=== PATIENT | male | born 1955 | race Caucasian/White ===

== ENCOUNTER 2024-12-27 18:52 | Emergency (ER) | payer MEDICARE, SELFPAY ==
[2024-12-27] VITALS (7 sets, daily range): BP systolic 116–150; BP diastolic 72–92; BMI 28.6
--- NOTE | 2024-12-27 19:23 | ED.MUSCINJ ---
HPI-Injury
<Srinivas Malave PA-C - Last Filed: 12/27/24 21:06>
General
Chief Complaint: Musculo-Skeletal Complaint
Source: patient
Exam Limitations: none
Time Seen by Provider: 12/27/24 18:56
History of Present Illness-Injury
Initial Injury comments:
69-year-old male [facility] with pain and deformity to left leg. He had his left hip replaced today. He could not bear weight and recovery. X-ray was unavailable in the surgical center so they sent him here for evaluation. He
is not anticoagulated. He notes pain to the left hip.
Phy Exam
<Srinivas Malave PA-C - Last Filed: 12/27/24 21:06>
Physical Exam
Physical Exam:
General: Well-appearing male no acute respiratory distress
HEENT: Normocephalic atraumatic
Heart: Regular rate and rhythm
Musculoskeletal: Left lower extremity shortened and externally rotated. Attempted internally rotating hip reproduces pain
Vascular: Palpable pulse DP left foot
Injury Course
<Srinivas Malave PA-C - Last Filed: 12/27/24 21:06>
Orders/Labs/Results
Orders:
Orders
12/27/24 18:56
CR Hip - LT without Pel 1 Vw Urgent
Comment:
Reason For Exam: pain
12/27/24 19:24
Propofol [Diprivan] 20 ml .ROUTE .STK-MED
12/27/24 19:46
CR Hip - LT without Pel 1 Vw Urgent
Comment:
Reason For Exam: post reduction
<Luis F Helms MD - Last Filed: 12/27/24 20:56>
Orders/Labs/Results
Orders:
Orders
12/27/24 18:56
CR Hip - LT without Pel 1 Vw Urgent
Comment:
Reason For Exam: pain
12/27/24 19:24
Propofol [Diprivan] 20 ml .ROUTE .STK-MED
12/27/24 19:46
CR Hip - LT without Pel 1 Vw Urgent
Comment:
Reason For Exam: post reduction
Procedures
<Srinivas Malave PA-C - Last Filed: 12/27/24 21:06>
Moderate Sedation
ASA Risk Score: Class II
Chart and allergies reviewed: Yes
Consent for anesthesia obtained: Yes
Time out completed (validating right patient & procedure): Yes
Moderate Sedation Start Time(when first medication is given): 19:35
History of difficult intubation: No
Airway free of obstruction: Yes
Patient has a gag reflex: Yes
Patient is able to open mouth: Yes
Patient has no dentures: Yes
Patient has no loose teeth: Yes
Medication administered by Provider during Moderate Sedation: IV Propofol (mg)
Total dose administered: 80
Time drug administered: 19:35
Moderate Sedation Procedure End Time: 19:46
<Srinivas Malave PA-C - Last Filed: 12/27/24 21:06>
MDM/Problems Addressed
Differential Diagnosis Includes:
Left lower lower extremity deformity. X-rays done in the room show a superior dislocation
Written consent obtained for moderate sedation and closed reduction of left hip risks and benefits discussed. Emergency room attending involved as well
<Srinivas Malave PA-C - Last Filed: 12/27/24 21:06>
*Critical Care Note
Total Time (30-74mins, 75-104mins- exclusive of procedures): Not Applicable
<LALO Tovar Last Filed: 12/27/24 21:06>
Update Note
Update Note:
Initial family demonstrated superior dislocation. written consent signed for moderate sedation and closed reduction. Sedation performed by emergency room attending. The left hip reduction was performed with hip flexion internal rotation and
longitudinal traction. A clunk was felt. The leg was let down and seem to have the same length and rotation as the opposite side. Postreduction films demonstrated successful reduction.
ED Attending Note
<Srinivas Malave PA-C - Last Filed: 12/27/24 21:06>
-
Portions of this chart may have been created with voice recognition software.� Occasional wrong word or��sound alike� substitutions may have occurred due to the inherent limitations of voice recognition software.
<Luis F Helms MD - Last Filed: 12/27/24 20:56>
ED Attending Note
Patient seen and examined by attending physician: Yes
I performed the substantive portion of visit, reviewed & personally made and approve the management plan that is documented in note by myself or ZAC.: Yes
ED Attending Note:
69-year-old male had a hip surgery done prosthesis at about 11 AM. Was noted this afternoon he had difficulty ambulating. They realized there may be a or dislocation although could not get the x-ray. He was brought over from the outpatient
surgery center for reduction. Patient medically stable. History of hypertension.
On exam patient's left hip is shortened and internally rotated. Good distal pulses and color. Incision is bandaged and healing well. Some swelling to the proximal leg.
X-ray shows a dislocated prosthesis. We discussed with the providing orthopedics. Risk-benefit to reduction was explained to the patient and family.
Hip was reduced by the physician field technical assistant Matthew without difficulty. 80 mg of propofol was given. Postreduction x-ray in place. Patient is ambulated. Will be discharged to follow-up
Discharge Plan
Departure
Patient Disposition: Home (Routine Discharge)
Date of Disposition: 12/27/24
Time of Disposition: 21:05
Patient with high blood pressure during this ER visit?: No
Discharge Problem:
Dislocation of hip prosthesis
Instructions: Muscle and Bone Pain (DC), MODERATE SEDATION ADULT
Activity Restrictions/Additional Instructions:
Use knee brace until seen by orthopedics. Weight-bear as tolerated with walker. Return here if needed otherwise
Interventions
Interventions:
*Risk Screen - Suicide Last Done: 12/27/24 18:54
*General Assessment Last Done: 12/27/24 18:54
*Neglect/Abuse Screening Last Done: 12/27/24 18:54
ED-Musculoskeletal Assessment Last Done: 12/27/24 19:32
Discharge Date and Time
Print Language: PASHTO
== END 2024-12-27 21:47 | disposition home or self-care (01) ==
LOC: EMR 18:52
PROVIDERS: EMERGENCY PHYSICIAN Emergency Medicine; FAMILY PHYSICIAN Family Medicine
DX: T84.021A Dislocation of internal left hip prosthesis, initial encounter (principal); Y79.2 Prosthetic and other implants, materials and accessory orthopedic devices associated with adverse incidents; I10 Essential (primary) hypertension
CPT/HCPCS: 27265; 99152; 99285; 73501